=== PATIENT | male | born 1940 | race Caucasian/White ===

== ENCOUNTER 2019-03-29 14:46 | Observation (INO) | payer MEDICARE, OTHER ==
--- NOTE | 2019-03-29 15:26 | RAD ---
EXAM DESCRIPTION: Chest,2 Views CLINICAL HISTORY: Shortness of breath, s/p pacemaker placement 2 days COMPARISON: None Available. TECHNIQUE: PA and lateral views of the chest FINDINGS: Multi lead left subclavian approach cardiac pacemaker in position. Calcific atherosclerosis of the aortic arch. Cardiac silhouette shows borderline cardiomegaly with central pulmonary vascular congestion and prominent interstitial markings bilaterally. Alveolar opacities are seen bilaterally, and are more prominent centrally. This is most compatible with pulmonary edema. Costophrenic angles are sharp. No pneumothorax. Visualized osseous structures show no destructive lesions. IMPRESSION: 1. Borderline cardiomegaly with central pulmonary vascular congestion and interstitial edema, compatible with congestive heart failure. 2. Alveolar opacities are seen bilaterally, and are more prominent centrally. This is most compatible with pulmonary edema. Underlying infiltrate cannot be entirely excluded. Electronically signed by: Kenrick Marquez MD 03/29/2019 3:24 PM CDT
[2019-03-29] MEDS ORDERED: ACETYLCYSTEIN 20 % 6,000 MG/30 ML VIAL PO ONE (17:13)
[2019-03-29] MEDS ORDERED: FUROSEMIDE INJ 40 MG/4 ML VIAL IV ONE (18:00)
--- NOTE | 2019-03-29 18:11 | CT ---
EXAM: CT Angiography Chest With Intravenous Contrast CLINICAL HISTORY: 77 years old and is Male; elev ddimer, hypoxia, pacemaker placed 2d ago TECHNIQUE: Axial computed tomographic angiography images of the chest with intravenous contrast using pulmonary embolism protocol. Sagittal and coronal reformatted images were created and reviewed. Sagittal and coronal reformatted images were created and reviewed. This CT exam was performed using one or more of the following dose reduction techniques: automated exposure control, adjustment of the mA and/or kV according to patient size, and/or use of iterative reconstruction technique. MIP reconstructed images were created and reviewed. COMPARISON: No relevant prior studies available. FINDINGS: Limitations: None. Pulmonary arteries: Suboptimal pulmonary arterial enhancement limits assessment. No central pulmonary embolus. Aorta: No abnormality noted. No thoracic aortic aneurysm. Lungs: There is central predominately perihilar groundglass disease. There is diffuse septal thickening. There is mild dependent airspace disease in both lower lobes. No mass. Pleural space: Small layering pleural effusions are present. No pneumothorax. Heart: Unremarkable. No cardiomegaly. No significant pericardial effusion. No evidence of RV dysfunction. Bones/joints: No acute fracture. No dislocation. Soft tissues: Unremarkable. Lymph nodes: Multiple mildly enlarged mediastinal lymph nodes present likely reactive. Tubes, lines and devices: Swelling and gas noted left anterior chest wall compatible with pacemaker insertion. Right atrial, ventricular and coronary sinus pacing leads present. IMPRESSION: 1. Suboptimal pulmonary arterial enhancement limits assessment. No central pulmonary embolus. 2. Abnormalities most consistent with CHF. Electronically signed by: Herlinda Pelaez MD 03/29/2019 6:09 PM CDT
[2019-03-29] MEDS ORDERED: AZITHROMYCIN IV 500 MG in SODIUM CHLORIDE 0.9% 250ML 250 ML IVPB ONE (18:14)
[2019-03-29] MEDS ORDERED: cefTRIAXone SODIUM 1 GM in SODIUM CHL 0.9% 50ML MIN-BAG+ 50 ML IVPB ONE (18:14)
[2019-03-29] MEDS ORDERED: APIXABAN 2.5 MG TAB PO ONE (18:15)
[2019-03-29] MEDS ORDERED: SODIUM CHL 0.9% 50ML MIN-BAG+ 50 ML IVPB ONE (18:16)
[2019-03-29] MEDS ORDERED: cefTRIAXone SODIUM 1 GM VIAL ONE (18:16)
--- NOTE | 2019-03-29 18:44 | ED.PDOC ---
History of Present Illness - General Chief Complaint: Chest Pain/TX Stated Complaint: Pt states chest tightness, SOB and low SpO2 @ home Time Seen by Provider: 03/29/19 14:47 Source: patient Exam Limitations: no limitations - History of Present Illness Initial Comments: the patient is a 77-year-old male presenting to the emergency room secondary to some shortness of breath and hypoxia noted on his home pulse oximeter. He was getting readings in the high 70s to low 80% range. He has not really been up and moving around today. he has mostly been lying around. He did wake up with a sore throat and a cough this morning. 2 days ago the patient had a pacemaker placed in the [place] area. The area around the operative site looks good. No obvious evidence of infection. he does not remember the procedure.he is unsure if he was intubated for it or not. Pulse oximetry upon arrival here shows the patient saturating around 90% on room air however he does desaturate w hen lying back down to the mid to low 80s. He does have a significant history of recurrent pneumonias with associated CHF exacerbations, with the development of pleural effusions. He does have a long-standing history of atrial fibrillation and is on Eliquis long-term. He did have to hold his Eliquis for the pacemaker placement for 4 days and restarted that yesterday at a reduced dose of 2.5 mg t wice daily. No real swelling of his extremities. No chest pain. No syncope. no Pain in the lower extremities. No pain in the upper extremities. Timing/Duration: unsure Severity: moderate Improving Factors: nothing Worsening Factors: nothing Associated Symptoms: cough, malaise, shortness of breath, weakness Allergies/Adverse Reactions: Allergies Amoxicillin Allergy (Verified 03/29/19 15:43) Atorvastatin [From Lipitor] Allergy (Verified 03/29/19 15:43) Penicillins Allergy (Verified 03/29/19 15:43) Home Medications: Ambulatory Orders Amiodarone HCl 200 mg PO QPM 03/29/19 Apixaban [Eliquis] 2.5 mg PO BID 03/29/19 Cholecalciferol [Vitamin D3] 4,000 unit PO DAILY 03/29/19 Cyanocobalamin [B12] 1,000 mcg PO DAILY 03/29/19 Diltiazem HCl [Cardizem] 180 mg PO QAM 03/29/19 FLUoxetine HCL [Prozac] 10 mg PO QAM 03/29/19 Lamotrigine 25 mg PO QPM 03/29/19 Loratadine [Claritin] 10 mg PO DAILY 03/29/19 Losartan Potassium 50 mg PO QPM 03/29/19 Magnesium Citrate (mg Suppleme [Magnesium Citrate] 100 mg PO BID 03/29/19 Omeprazole 20 mg PO QPM 03/29/19 Tamsulosin [Flomax] 0.8 mg PO QPM 03/29/19 Review of Systems - Review of Systems Constitutional: States: malaise, weakness - generalized EENTM: States: nose congestion, throat pain Respiratory: States: cough, orthopnea, short of breath Cardiology: States: see HPI Gastrointestinal/Abdominal: States: no symptoms reported Genitourinary: States: no symptoms reported Musculoskeletal: States: no symptoms reported Skin: States: no symptoms reported Neurological: States: no symptoms reported Endocrine: States: no symptoms reported Hematologic/Lymphatic: States: no symptoms reported All other Systems: No Change from Baseline Past Medical History (General) - Patient Medical History Hx Stroke: No Hx of COPD: No Hx Cardiac Disorders: Yes - A Fib Hx Pacemaker: Yes Hx Diabetes: No Hx Gastroesophageal Reflux: Yes Surgical History: pacemaker, tonsillectomy - Vaccination History Hx Influenza Vaccination: Yes Hx Pneumococcal Vaccination: Yes - Social History Hx Tobacco Use: Yes Hx Alcohol Use: Yes Hx Substance Use: No Hx Substance Use Treatment: No Hx Depression: No - Female History Patient is a Female of Child Bearing Age (10 -59 yrs old): No Patient : No Family Medical History - Family History Father Hx Family Hypertension: Yes Mother Hx Family Cancer: Yes Physical Exam - Physical Exam General Appearance: Alert, Other - uncomfortable Eye Exam: bilateral normal Ears, Nose, Throat: hearing grossly normal, nasal congestion, pharyngeal erythema Neck: full range of motion, supple Respiratory: lungs clear, normal breath sounds, no respiratory distress, no accessory muscle use Cardiovascular/Chest: normal peripheral pulses, no edema, other - regular rate Peripheral Pulses: radial,right: 2+, radial,left: 2+ Gastrointestinal/Abdominal: non tender, soft Rectal Exam: deferred Back Exam: no CVA tenderness, no vertebral tenderness Extremity: normal range of motion, non-tender, normal inspection, no pedal edema, normal capillary refill Neurologic: chlorination operator II-XII nml as tested, alert, normal mood/affect, oriented x 3 Skin Exam: normal color Comments: Vital Signs - 24 hr 03/29/19 03/29/19 03/29/19 14:49 15:09 16:00 Temperature 99 F Pulse Rate [L 77 77 73 finger] Respiratory 18 18 18 Rate Blood Pressure 131/66 120/64 [R arm] O2 Sat by Pulse 92 L 89 L Oximetry 03/29/19 03/29/19 03/29/19 16:34 17:00 18:00 Temperature Pulse Rate [L 72 74 70 finger] Respiratory 16 20 20 Rate Blood Pressure 127/62 121/65 148/72 [R arm] O2 Sat by Pulse 90 L 91 L 92 L Oximetry 03/29/19 18:33 Temperature Pulse Rate [L finger] Respiratory Rate Blood Pressure [R arm] O2 Sat by Pulse 93 L Oximetry Progress - Progress Progress: 03/29/19 18:48 the patient is a 77-year-old male presenting to the emergency room secondary to shortness of breath and hypoxia. Given the patient's symptoms this morning, leukocytosis and recurrent history, I believe the patient has a pneumonia triggering a CHF exacerbation. most likely source for the pneumonia would be when he was sedated for a procedure. Blood culture has been done. The patient is being started on Rocephin and azithromycin. He is being placed on oxygen to prevent hypoxia when he lies back. For the CHF he has received a dose of IV Lasix and is already urinating. The CT scan was inadequate to definitively rule out a pulmonary embolus, however a pulmonary embolus is not extremely likely and the patient is already on Eliquis. We are going to ramp his eliquis dose back up to 5 mg twice daily for the possibility. If the patient diuresis and clears up his lung florence well and is still having some hypoxia then reevaluating for a pulmonary embolus may be worthwhile. At this point in time I do not want to give him additional dye as we are obviously going to have to diurese him further. Admit for care of above issues. the patient does have a mild elevation of cardiac enzymes. These can be repeated later in the stay to make sure they do not rise significantly. This level of muscle enzyme rise is not uncommon with pacemaker placement. - Results/Orders Results/Orders: rapid flu was negative. Chest x-ray does show some infiltrates and evidence of CHF CT angiogram of the chest was inadequate study secondary to infiltration of the IV part of the way through. No overt evidence of any pulmonary embolus was seen however. There is significant evidence of a CHF exacerbation including interstitial edema and significant bilateral pleural effusions. It is difficult to say whether or not there is superimposed pneumonia in the interstitial edema. Laboratory Tests 03/29/19 03/29/19 03/29/19 15:57 15:57 15:57 WBC 13.3 H RBC 3.98 L Hgb 11.8 L Hct 36.7 L MCV 92.1 MCH 29.7 MCHC 32.3 L RDW 15.9 H Plt Count 236 MPV 8.1 Absolute Neuts (auto) 11.10 H Absolute Lymphs (auto) 0.90 L Absolute Monos (auto) 1.30 H Absolute Eos (auto) 0.00 Absolute Basos (auto) 0.10 Neutrophils % 83.4 H Lymphocytes % 6.5 L Monocytes % 9.6 H Eosinophils % 0.1 L Basophils % 0.4 D-Dimer, Quantitative 0.97 H* Sodium 136 Potassium 4.0 Chloride 105 Carbon Dioxide 22 Anion Gap 13.0 BUN 29 H Creatinine 0.99 BUN/Creatinine Ratio 29.3 H Random Glucose 122 H Serum Osmolality 279.1 Calcium 8.8 Total Bilirubin 1.0 AST 36 ALT 22 Alkaline Phosphatase 58 Creatine Kinase 479 H* CK-MB (CK-2) 3.6 CK-MB (CK-2) % 0.75 Troponin I 0.15 H* B-Natriuretic Peptide 216.0 H* Serum Total Protein 6.2 L Albumin 3.5 Globulin 2.7 Albumin/Globulin Ratio 1.3 Group A Strep Rapid 03/29/19 15:57 WBC RBC Hgb Hct MCV MCH MCHC RDW Plt Count MPV Absolute Neuts (auto) Absolute Lymphs (auto) Absolute Monos (auto) Absolute Eos (auto) Absolute Basos (auto) Neutrophils % Lymphocytes % Monocytes % Eosinophils % Basophils % D-Dimer, Quantitative Sodium Potassium Chloride Carbon Dioxide Anion Gap BUN Creatinine BUN/Creatinine Ratio Random Glucose Serum Osmolality Calcium Total Bilirubin AST ALT Alkaline Phosphatase Creatine Kinase CK-MB (CK-2) CK-MB (CK-2) % Troponin I B-Natriuretic Peptide Serum Total Protein Albumin Globulin Albumin/Globulin Ratio Group A Strep Rapid Negative EKG shows normal sinus rhythm at 76 bpm that is ventricularly paced. Right axis deviation. No definitive ST segment changes for ischemia. There is mild T-wave inversion in lead 3. Again difficult to interpret secondary to pacemaker. Departure - Departure Clinical Impression: Acute exacerbation of CHF (congestive heart failure) Pneumonia Qualifiers: Pneumonia type: due to unspecified organism Laterality: bilateral Lung location: unspecified part of lung Qualified Code(s): J18.9 - Pneumonia, unspecified organism Disposition: Admit Patient Condition: Serious Departure Forms: ED Discharge - Pt. Copy, Patient Portal Self Enrollment Home Medications: Ambulatory Orders Amiodarone HCl 200 mg PO QPM 03/29/19 Apixaban [Eliquis] 2.5 mg PO BID 03/29/19 Cholecalciferol [Vitamin D3] 4,000 unit PO DAILY 03/29/19 Cyanocobalamin [B12] 1,000 mcg PO DAILY 03/29/19 Diltiazem HCl [Cardizem] 180 mg PO QAM 03/29/19 FLUoxetine HCL [Prozac] 10 mg PO QAM 03/29/19 Lamotrigine 25 mg PO QPM 03/29/19 Loratadine [Claritin] 10 mg PO DAILY 03/29/19 Losartan Potassium 50 mg PO QPM 03/29/19 Magnesium Citrate (mg Suppleme [Magnesium Citrate] 100 mg PO BID 03/29/19 Omeprazole 20 mg PO QPM 03/29/19 Tamsulosin [Flomax] 0.8 mg PO QPM 03/29/19 Decision To Admit - Decistion To Admit Decision to Admit Reason: Medical Nature Decision to Admit Date: 03/29/19 Decision to Admit Time: 18:53
[2019-03-29] MEDS ORDERED: SODIUM CHLORIDE 0.9% 250ML 250 ML ONE (19:13)
[2019-03-29] MEDS ORDERED: AZITHROMYCIN IV 500 MG VIAL IVPB ONE (19:13)
--- NOTE | 2019-03-29 20:20 | HP ---
SUPERVISING PHYSICIAN: Kapil Villarreal MD CHIEF COMPLAINT: Low O2 saturations. HISTORY OF PRESENT ILLNESS: This is a 77-year-old male patient who came to the Emergency Room due to low O2 saturations. The patient actually had a pacemaker placed on Wednesday. He has a history of atrial fibrillation and has failed cardioversions and ablations in the past. For that reason, he had a pacemaker placed. Yesterday, he noticed that he had a sore throat. He felt like it had moved down into his chest although he did not have a significant cough or shortness of breath. He does have a pulse oximeter at home and checked and said he was anywhere from 77% to 83%. He called his public information director's nurse who instructed him to come to the Emergency Room. Therefore, that is what he did. Here in the Emergency Room, he was evaluated with labs as well as films. He had a CT scan of the chest as well as chest x-ray and both were pretty much indicative of pulmonary vascular congestion. He did have an elevated BNP up to 16. Troponin was mildly elevated at 0.15. He had an elevated BUN of 29, creatinine 0.99, glucose 122. Otherwise, unremarkable. He did have a D-dimer which was elevated at 0.97. A CT angiography of the chest was attempted, but his IV infiltrated. He did have an elevated white count of 13.3 with a left shift of 83.4%. Hemoglobin 11.8, hematocrit 36.7, platelet count 236. He does have a history of pneumonia and congestive heart failure in the past although he does state that his ejection fraction is 65%. He did not have an echocardiogram to look at at this time, but the Emergency Room physician referred him for admission due to a possible underlying pneumonia and congestive heart failure. At the time of examination, the patient is actually awake and alert and in no distress. He received 40 mg of Lasix in the Emergency Room and says he feels a little bit better after this. O2 saturations are 94% and 95% on room air while I am at the bedside. PAST MEDICAL HISTORY: 1. Atrial fibrillation on Eliqu. 2. Hypertension. 3. Hyperlipidemia. 4. Benign prostatic hypertrophy. PAST SURGICAL HISTORY: 1. Tonsillectomy and adenoidectomy as a child. 2. Lesion removal from his left shoulder, which was benign. 3. Pacemaker placement on Wednesday. MEDICATIONS: 1. Amiodarone 200 mg p.o. q.p.m. 2. Eliquis 2.5 mg p.o. b.i.d. 3. Vitamin D3 4000 international units p.o. daily. 4. Vitamin B12 1000 mcg p.o. daily. 5. Cardizem 180 mg p.o. q.a.m. 6. Fluoxetine 10 mg p.o. q.a.m. 7. Lamotrigine 25 mg p.o. q.p.m. 8. Loratadine 10 mg p.o. daily. 9. Losartan 50 mg p.o. q.p.m. 10. Magnesium citrate 100 mg p.o. b.i.d. 11. Omeprazole 20 mg p.o. q.p.m. 12. Tamsulosin 0.8 mg p.o. q.p.m. ALLERGIES: AMOXICILLIN, ATORVASTATIN, PENICILLIN. FAMILY HISTORY: His father had atrial fibrillation with a pacemaker in the past as well. He is not aware of any congestive heart failure, I do not think. SOCIAL HISTORY: He has a distant history of smoking, but he quit in 1983. No alcohol, no illicit drugs. He is . REVIEW OF SYSTEMS: CONSTITUTIONAL: No fever or chills. No recent weight loss or weight gain. HEENT: No headaches, vision changes, ear pain, nasal congestion, but he did have a sore throat. RESPIRATORY: No cough, hemoptysis or pleuritic chest pain. CARDIOVASCULAR: No chest pain, palpitations or peripheral edema. GASTROINTESTINAL: No nausea, vomiting, diarrhea, constipation or abdominal pain. GENITOURINARY: No dysuria, frequency or flank pain. MUSCULOSKELETAL: No muscle cramps, joint pain or joint swelling. ENDOCRINE: No polydipsia, polyuria or polyphagia. No heat or cold intolerance. NEUROLOGIC: No syncope, paresthesias or seizures. PHYSICAL EXAMINATION: VITAL SIGNS: Blood pressure 148/72. Heart rate 70. Respiratory rate 20. Temperature 99.0. Oxygen saturation 94%. GENERAL: Mr. Deleno is a 77-year-old male patient in no active distress currently. HEENT: Normocephalic, atraumatic. Pupils are equal and reactive. No nasal drainage. Throat with moist mucosa. NECK: Supple. Midline trachea. No jugular venous distention. CHEST: Symmetrical with equal rise and fall of the chest with inspiration and expiration. Lung sounds are clear to auscultation bilaterally. CARDIOVASCULAR: Regular rate and rhythm. Normal S1, S2. ABDOMEN: Soft. Positive bowel sounds. GENITOURINARY: Deferred. EXTREMITIES: Lower extremities with no significant edema. Pulses 2+. Capillary refill is less than 2 seconds. LABORATORY: Labs and films are as discussed in history of present illness. ASSESSMENT: 1. Congestive heart failure exacerbation. 2. Possible underlying pneumonia with leukocytosis. 3. Hypertension. 4. History of chronic atrial fibrillation status post pacemaker placement. 5. Benign prostatic hypertrophy. PLAN: At this time, we will place the patient in the hospital for observation. He is clinically improved after the Lasix in the Emergency Room. He does have an elevated white count with a left shift. We cannot rule out underlying pneumonia although this is more consistent with congestive heart failure. I am wondering if the white count is elevated due to his recent pacemaker placement. He did get Rocephin and azithromycin in the Emergency Room. I will resume his home medications, recheck his blood work and chest x-ray in the morning. If he remains stable, I will consider sending him home tomorrow on p.o. antibiotics. He may need to discuss with a public information director whether or not he might need some Lasix. #[id number] [facility]ITALJoselito
[2019-03-29] MEDS ORDERED: NITROGLYCERIN 0.4 MG 25 EA TAB SL PRN (20:33)
[2019-03-29] MEDS ORDERED: SODIUM CHLORIDE 0.9% (FLUSH) 10 ML SYG IV PRN (20:33)
[2019-03-29] MEDS ORDERED: lamoTRIgine 25 MG TAB PO SCH (21:00)
[2019-03-29] MEDS ORDERED: NON-FORMULARY MEDICATION 1 EA MIS (Omeprazole [Omeprazole] 20 MG) PO SCH (21:00)
[2019-03-29] MEDS ORDERED: AMIODARONE HCL 200 MG TAB PO SCH (21:00)
[2019-03-29] MEDS ORDERED: NON-FORMULARY MEDICATION 1 EA MIS (Losartan Potassium [Losartan Potassium] 50 MG) PO SCH (21:00)
[2019-03-29] MEDS ORDERED: TAMSULOSIN 0.4 MG CAP PO SCH (21:00)
[2019-03-29] MEDS ORDERED: IV SET AND CAP CHANGE INJ INJ SCH (21:00)
[2019-03-29] MEDS ORDERED: OMEPRAZOLE CAP 20 MG CAP ONE (21:33)
[2019-03-29] MEDS ORDERED: LOSARTAN POTASSIUM 25 MG TAB ONE (21:33)
[2019-03-29] MEDS: APIXABAN 2.5 MG TAB PO SCH (22:00)
[2019-03-29] MEDS ORDERED: ACETAMINOPHEN 325 MG TAB PO PRN (23:22)
[2019-03-30] MEDS ORDERED: diltiaZEM HCL CD 180 MG CAP ONE (07:18)
[2019-03-30] MEDS ORDERED: CHOLECALCIFEROL 2,000 IU TAB PO ONE (07:18)
[2019-03-30] MEDS ORDERED: CYANOCOBALAMIN 1,000 MCG TAB ONE (07:18)
[2019-03-30] MEDS ORDERED: LORATADINE 10 MG TAB PO ONE (07:18)
--- NOTE | 2019-03-30 07:36 | RAD ---
EXAM DESCRIPTION: Chest,1 View CLINICAL HISTORY: 77 years Male CHF COMPARISON: Two-view chest dated 03/29/2019 TECHNIQUE: Portable AP view of the chest is obtained. FINDINGS IN THE CHEST: Heart: Allowing for magnification factors related to AP portable technique, the heart is normal in size and configuration. A biventricular pacemaker is in place with leads terminating in the right atrium, right ventricle and left coronary sinus. Vasculature: [] There is no evidence of aortic aneurysm or acute findings. The previously demonstrated pulmonary vascular congestion has improved. Mediastinum: Unremarkable otherwise. No evidence of mass or adenopathy. Lungs: The study is obtained during a suboptimal depth of inspiration with resultant overall decreased lung volumes. In the interim, there has been near complete clearance of bilateral alveolar opacification with only minimal perihilar haziness persisting. A small nodular density projects in the right upper lung which was not demonstrated on the CT examination of the prior day. Pleura: There are no pleural effusions. There are no pneumothoraces. Tubes and catheters: None Chest wall: Unremarkable. Osseous structures: No evidence of acute fracture or other significant osseous abnormalities. IMPRESSION: Significant improvement in the findings of congestive heart failure with only minimal perihilar edema persisting. Remainder of findings as described above. Electronically signed by: Theresa Glover MD 03/30/2019 7:35 AM CDT
[2019-03-30] MEDS ORDERED: CHOLECALCIFEROL 2,000 IU TAB PO SCH (09:00)
[2019-03-30] MEDS ORDERED: diltiaZEM HCL CD 180 MG CAP PO SCH (09:00)
[2019-03-30] MEDS ORDERED: LORATADINE 10 MG TAB PO SCH (09:00)
[2019-03-30] MEDS ORDERED: FLUoxetine HCL 10 MG CAP PO SCH (09:00)
[2019-03-30] MEDS ORDERED: CYANOCOBALAMIN 1,000 MCG TAB PO SCH (09:00)
[2019-03-30] MEDS: APIXABAN 2.5 MG TAB PO SCH (09:07)
[2019-03-30 09:52] VITALS: BP 120/63; TEMP 98.5; O2SAT 95
--- NOTE | 2019-03-30 14:11 | DS ---
SUPERVISING PHYSICIAN: Kapil Villarreal MD ADMISSION DIAGNOSIS: 1. Congestive heart failure exacerbation. 2. Possible underlying pneumonia with leukocytosis. 3. Hypertension. 4. History of chronic atrial fibrillation status post pacemaker placement on chronic anticoagulation therapy. 5. Benign prostatic hypertrophy. DISCHARGE DIAGNOSIS: 1. Congestive heart failure exacerbation. 2. Possible underlying pneumonia with leukocytosis. 3. Hypertension. 4. History of chronic atrial fibrillation status post pacemaker placement on chronic anticoagulation therapy. 5. Benign prostatic hypertrophy. HOSPITAL COURSE: This is a 77-year-old male patient who came to the Emergency Room with low O2 saturations on his home pulse oximeter. In the Emergency Room, he was found to have findings consistent with congestive heart failure, but could not rule out an underlying pneumonia. He did have some leukocytosis as well. In the Emergency Room, he was given Rocephin and azithromycin IV as well as Lasix 40 mg. He was referred for admission by the Emergency Room physician at that time. The Lasix actually improved his symptoms quite a bit and his O2 saturations were in the mid 90s on room air. Repeat lab work this morning showed a normal white count of 9.4 with no left shift. Clinically, is not having any symptoms. Therefore, the patient will be discharged today. I am going to go ahead and order some doxycycline for him to go home with. I do not think he has a significant pneumonia, but he does have a history of getting pneumonia fairly easily according the patient and, therefore, I will use that at this time. Additionally, I do feel like he might need some daily Lasix. At the very least, he might need some p.r.n. Lasix. I have asked him to discuss this with his cryptography teacher. He has actually been in contact with that office today already. We will defer to his cryptography teacher regarding diuretics. [facility][id number] [facility]
[2019-03-30] MEDS ORDERED: OMEPRAZOLE CAP 20 MG CAP PO SCH (18:00)
[2019-03-30] MEDS ORDERED: LOSARTAN POTASSIUM 25 MG TAB PO SCH (21:00)
== END 2019-03-30 12:01 | disposition home or self-care (01) ==
LOC: EDBD → ER 14:46 → MS 20:19
PROVIDERS: ADMIT Nurse Practitioner; ATTEND Nurse Practitioner
DX: I11.0 Hypertensive heart disease with heart failure (principal); I50.9 Heart failure, unspecified; I48.2 Chronic atrial fibrillation; N40.0 Benign prostatic hyperplasia without lower urinary tract symptoms; R09.02 Hypoxemia; E78.5 Hyperlipidemia, unspecified; Z95.0 Presence of cardiac pacemaker; Z79.01 Long term (current) use of anticoagulants; Z79.899 Other long term (current) drug therapy; Z88.0 Allergy status to penicillin; Z88.8 Allergy status to other drugs, medicaments and biological substances; Z87.891 Personal history of nicotine dependence; Z82.49 Family history of ischemic heart disease and other diseases of the circulatory system
CPT/HCPCS: 96366; 96365; 96368; 96375; J0696; J1940; J7050 ×2; J0456; 85379; 80048; 82553; 80053; 87880; 36415 ×4; 85025 ×2; 82550; 87040 ×2; 87070; 84484; 83880; 71045; 71046; 71275; 94760 ×4; 99285; 93005; 87502